=== PATIENT | female | born 2005 | race Caucasian/White ===

== ENCOUNTER 2025-02-27 21:49 | Emergency (ER) | payer OTHER ==
[~2025-02-27] VITALS: Ht 172.7 cm; Wt 54.4 kg
[2025-02-27] MEDS ORDERED: Acetaminophen 500 MG Tab PO ONE (23:30)
[2025-02-27] MEDS ORDERED: Ibuprofen 600 MG Tab PO ONE (23:30)
[2025-02-27] MEDS ORDERED: Clindamycin HCl 150 MG Cap PO ONE (23:30)
[2025-02-27] MEDS ORDERED: Cleocin HCl150 MG PO (23:34)
== END 2025-02-27 23:53 | disposition home or self-care (01) ==
LOC: ER 21:49
DX: K04.7 Periapical abscess without sinus (principal)
CPT/HCPCS: 99282; A9270